=== PATIENT | male | born 1945 | race Caucasian/White ===

== ENCOUNTER 2018-07-10 08:29 | Inpatient (IN) ==
[2018-07-10] MEDS ORDERED: TYLENOL PO ONE (08:53)
--- NOTE | 2018-07-10 09:04 | PROVIDER DOCUMENTATION ---
HPI-Fever - General Chief Complaint: Possible Sepsis-P Stated Complaint: ABD PAIN Time Seen by Provider: 07/10/18 08:47 Source: patient, family Allergies/Adverse Reactions: Patient Allergies Allergy/AdvReac Type Severity Reaction Status Date / Time No Known Allergies Allergy Verified 07/10/18 09:17 - History of Present Illness-Fever Nature of Presenting Problem: 73yom present to ER with c/o fever, low back pain, blood in urine onset this morning. Pt states "I think I passed a kidney stone." Reports hx of this. 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 Pt denies any other symptoms. Fever Severity/Quality: reports: greater than 102 F Onset/Duration: reports: this morning Timing: reports: still present Recent Illness?: reports: none Fever Therapy INSPECTOR SOLDERING: Initiated none Cognitive Baseline: alert, oriented x3 Associated Symptoms: reports: back/neck pain (low back), fever/chills, genitourinary problems (hematuria), muscle aches. denies: chest pain, cough, diarrhea, EENT symptoms, sinus congestion/drainage, nausea, shortness of breath , vomiting - Glascow Coma Score Best Eye Response (Piper): (4) open spontaneously Best Verbal Response (Piper): (5) oriented Best Motor Response (Piper): (6) obeys commands Review of Systems - Adult - REVIEW OF SYSTEMS - ADULT Constitutional: reports: see HPI, chills, fever Eyes: reports: no symptoms reported Ears, Nose, Mouth & Throat: reports: no symptoms reported. denies: ear pain, throat pain Cardiovascular: reports: no symptoms reported. denies: chest pain, orthopnea, palpitations Respiratory: reports: no symptoms reported. denies: cough, dyspnea on exertion , excessive sputum production, shortness of breath, wheezing Gastrointestinal: reports: no symptoms reported. denies: abdominal pain, diarrhea, nausea, vomiting Genitourinary: reports: see HPI, hematuria. denies: dysuria, frequency, flank pain Musculoskeletal: reports: back pain (low) Integumentary: reports: no symptoms reported Neurological: reports: no symptoms reported. denies: dizziness/vertigo, headache/migraines Psychiatric: reports: no symptoms reported Endocrine: reports: no symptoms reported Hematologic/Lymphatic: reports: no symptoms reported Allergic/Immunologic: reports: no symptoms reported All Other Systems: Reviewed and Negative Past History - Adult - PAST MEDICAL HISTORY-ADULT Review of Records: reports: Old Records Reviewed, Nursing Assessment Review, Medications Reviewed Physical Exam-General - PHYSICAL EXAM-ADULT Initial Vital Signs Reviewed: Yes - CONSTITUTIONAL General Appearance: alert, no apparent distress. negative: lethargic - EYES Eyes: PERRL/EOMI, pink conjunctivae - HEAD, EARS, NOSE, MOUTH & THROAT HENMT: normocephalic/atraumatic, moist mucous membranes, normal ENT inspection - NECK Neck: non-tender, full range of motion, supple, normal inspection - RESPIRATORY Respiratory: chest non-tender, lungs clear, normal breath sounds, no pleuratic chest pain, no respiratory distress, no accessory muscle use - CARDIOVASCULAR Cardiovascular: regular rate, rhythm - GASTROINTESTINAL (ABDOMEN) Abdominal Exam: normal bowel sounds, non tender, soft. negative: distended, guarding, rigid, rebound - LYMPHATIC Lymphatic: no adenopathy - MUSCULOSKELETAL Back Exam: normal inspection, no CVA tenderness, no vertebral tenderness Extremity: normal range of motion, normal inspection - SKIN Integumentary: normal color, warm/dry. negative: rash - NEUROLOGIC Neurologic: grossly normal, no motor/sensory deficits - PSYCHIATRIC Psych/Mental Status: oriented x 3 Progress - PLAN OF CARE/RESULTS Progress/Plan/Lab Results: Vital Signs - 8 hr 07/10/18 08:33 07/10/18 09:00 07/10/18 09:52 Temperature 103.1 F H 102.9 F H Pulse Rate 105 H 95 H Respiratory Rate 21 14 Blood Pressure 133/72 120/73 O2 Sat by Pulse Oximetry 97 Laboratory Results - last 24 hr 07/10/18 07/10/18 07/10/18 08:37 08:48 08:48 WBC 4.39 L RBC 4.49 L Hgb 13.3 L Hct 40.3 L MCV 89.8 MCH 29.6 MCHC 33.0 RDW Std Deviation 13.0 Plt Count 231 MPV 8.7 Immature Gran % (Auto) 0.5 Neut % (Auto) 92.5 H Lymph % (Auto) 5.2 L [place] % (Auto) 0.5 L Eos % (Auto) 1.1 Baso % (Auto) 0.2 Immature Gran # (Auto) 0.02 Neut # (Auto) 4.06 Lymph # (Auto) 0.23 L [place] # (Auto) 0.02 L Eos # (Auto) 0.05 Baso # (Auto) 0.01 Segmented Neutrophils 85 H Lymphocytes 10 L Monocytes 4 Eosinophils 1 PT INR PTT (Actin FS) Sodium Potassium Chloride Carbon Dioxide Anion Gap BUN Creatinine Estimated GFR/1.73 m2 BUN/Creatinine Ratio Glucose Calculated Osmolality Calcium Total Bilirubin AST ALT Alkaline Phosphatase Creatine Kinase Troponin T Total Protein Albumin Globulin Albumin/Globulin Ratio Plasma Lactate 2.8 H Urine Source Urine Color Urine Clarity Urine pH Ur Specific [place] Urine Protein Urine Ketones Urine Blood Urine Nitrite Urine Bilirubin Urine Urobilinogen Urine Microscopic RBC Urine WBC Urine Microscopic WBC Ur Epithelial Cells Urine Bacteria Urine Glucose Influenza A (Rapid) NEGATIVE Influenza B (Rapid) NEGATIVE 07/10/18 07/10/18 07/10/18 08:48 08:48 08:48 WBC RBC Hgb Hct MCV MCH MCHC RDW Std Deviation Plt Count MPV Immature Gran % (Auto) Neut % (Auto) Lymph % (Auto) [place] % (Auto) Eos % (Auto) Baso % (Auto) Immature Gran # (Auto) Neut # (Auto) Lymph # (Auto) [place] # (Auto) Eos # (Auto) Baso # (Auto) Segmented Neutrophils Lymphocytes Monocytes Eosinophils PT 13.9 INR 1.02 PTT (Actin FS) 30.0 Sodium 139 Potassium 4.7 Chloride 98 Carbon Dioxide 28 Anion Gap 13 BUN 7 L Creatinine 0.8 Estimated GFR/1.73 m2 > 60 BUN/Creatinine Ratio 9 Glucose 102 Calculated Osmolality 276 Calcium 9.0 Total Bilirubin 0.60 AST 22 ALT 10 Alkaline Phosphatase 61 Creatine Kinase 81 Troponin T < 0.010 Total Protein 7.2 Albumin 4.1 Globulin 3.0 Albumin/Globulin Ratio 1.0 Plasma Lactate Urine Source Urine Color Urine Clarity Urine pH Ur Specific [place] Urine Protein Urine Ketones Urine Blood Urine Nitrite Urine Bilirubin Urine Urobilinogen Urine Microscopic RBC Urine WBC Urine Microscopic WBC Ur Epithelial Cells Urine Bacteria Urine Glucose Influenza A (Rapid) Influenza B (Rapid) 07/10/18 09:48 WBC RBC Hgb Hct MCV MCH MCHC RDW Std Deviation Plt Count MPV Immature Gran % (Auto) Neut % (Auto) Lymph % (Auto) [place] % (Auto) Eos % (Auto) Baso % (Auto) Immature Gran # (Auto) Neut # (Auto) Lymph # (Auto) [place] # (Auto) Eos # (Auto) Baso # (Auto) Segmented Neutrophils Lymphocytes Monocytes Eosinophils PT INR PTT (Actin FS) Sodium Potassium Chloride Carbon Dioxide Anion Gap BUN Creatinine Estimated GFR/1.73 m2 BUN/Creatinine Ratio Glucose Calculated Osmolality Calcium Total Bilirubin AST ALT Alkaline Phosphatase Creatine Kinase Troponin T Total Protein Albumin Globulin Albumin/Globulin Ratio Plasma Lactate Urine Source CLEAN CATCH Urine Color YELLOW Urine Clarity SL. CLOUDY A Urine pH 7.0 Ur Specific [place] 1.005 Urine Protein 1+(30 mg/dL) A Urine Ketones NEGATIVE Urine Blood 3+ A Urine Nitrite NEGATIVE Urine Bilirubin NEGATIVE Urine Urobilinogen NORMAL Urine Microscopic RBC 10-20 A Urine WBC TRACE A Urine Microscopic WBC 10-20 A Ur Epithelial Cells >10 A Urine Bacteria 4+ Urine Glucose NEGATIVE Influenza A (Rapid) Influenza B (Rapid) Orders Category Date Time Status Cardiac Monitoring DIRECTED Care 07/10/18 08:39 Active IV Insertion ORDERED Care 07/10/18 08:39 Completed Notify MD of + Sepsis Screen NOW Care 07/10/18 08:39 Active Notify Physician As Ordered Care 07/10/18 08:39 Active Repeat Vital Signs .Temp Care 07/10/18 09:35 Active CHEST-PORTABLE [RAD] Stat Exams 07/10/18 08:[address] ABD/PELVIS W/IV CONT ONLY [CT] Stat Exams 07/10/18 08:53 Completed BLOOD CULTURE [BLDCUL] Stat Lab 07/10/18 08:51 Ordered CBC WITH DIFF [HEME] Stat Lab 07/10/18 08:48 Completed CK PROFILE [SP CHEM] Stat Lab 07/10/18 08:48 Completed COMPREHENSIVE METABOLIC PANEL [CHEM] Stat Lab 07/10/18 08:48 Completed Flu [INFLUENZA SCREEN PL] Stat Lab 07/10/18 08:37 Completed LACTATE, PLASMA [CHEM] Lab 07/10/18 11:45 Uncollected LACTATE, PLASMA [CHEM] Lab 07/10/18 14:45 Uncollected LACTATE, PLASMA [CHEM] Stat Lab 07/10/18 08:48 Completed PROTIME WITH INR [COAG] Stat Lab 07/10/18 08:48 Completed PTT [COAG] Stat Lab 07/10/18 08:48 Completed TROPONIN T Stat Lab 07/10/18 08:[address] W/POSS RFLX CULT [URINALYSIS] Stat Lab 07/10/18 09:48 Completed URINE CULTURE [RM] Routine Lab 07/10/18 10:12 Ordered 0.9% Sodium Chloride Inj [Ns] 1,000 ml Med 07/10/18 09:34 Discontinued IV 999 mls/hr 0.9% Sodium Chloride Inj [Ns] 1,000 ml Med 07/10/18 09:52 Discontinued IV 999 mls/hr Acetaminophen [Tylenol] Med 07/10/18 08:53 Discontinued 1,000 mg PO NOW ONE CefTRIAXONE [Rocephin] 1 gm Med 07/10/18 09:52 Discontinued 0.9% Sodium Chloride Inj [Ns] 50 ml IV NOW Oxygen Device Stat Oth 07/10/18 08:39 Active EKG [EKG] Stat Ther 07/10/18 08:54 Draft Result Diagrams: 07/10/18 08:48 07/10/18 08:48 - REASSESSMENT Reassessment #1 Time Reassessed: 10:53 (Discussed results with pt and family. Discussed need for possible admission. Pt agrees. BP 95/79, HR 93 while in room. Pt A&Ox3. Will page hospitalist for admission) - EKG 1 Time of EKG reading by physician:: 09:00 EKG Read and Signed by:: Rigoberto Rosado Rate: 96 Rhythm: NSR - XRAY 1 XRAY Study: Chest Impression: See EMR Report (The lungs are well expanded. The heart is not enlarged. The vessels are not distended. There are no infiltrates. No effusion identified. IMPRESSION: No pneumonia. Electronically signed by Irving Pal 07/10/2018 9:05 AM) - CT/MRI 1 CT Study: Abdomen, Pelvis Impression: See EMR Report (No calcified gallstones or adjacent inflammation. Normal liver, spleen, pancreas, adrenal glands, and kidneys. There are several tiny renal cysts. No solid renal masses or stones identified. No hydronephrosis. Mild to moderate atherosclerosis. No aortic aneurysm. No bowel obstruction. There is stool throughout the colon. There are scattered colonic diverticula. No inflammation about the cecum. The prostate is enlarged measuring at least 5.6 cm in transverse diameter. Normal urinary bladder. There is scoliosis with degenerative spine changes. IMPRESSION: 1.Constipation 2.Diverticulosis 3.Enlarged prostate 4.Tiny renal cysts This exam was performed using automated exposure control, adjustment of mA or kV according to patient size, and/or use of iterative reconstruction technique. Electronically signed by Irving Pal 07/10/2018 10:43 AM) - CONSULTS/PCP/HOSPITALIST Notification #1 *Consult/PCP/Hospitalist*: hospitalist Dr Winslow Time Discussed: 11:34 (possible admission) Reason/Comments: urosepsis Consult Disposition: Admit Departure - Departure Date of Disposition Decision: 07/10/18 Time of Disposition Decision: 11:34 DIAGNOSIS: UTI (urinary tract infection) Qualifiers: Urinary tract infection type: site unspecified Hematuria presence: with hematuria Qualified Code(s): N39.0 - Urinary tract infection, site not specified ; R31.9 - Hematuria, unspecified Sepsis Qualifiers: Sepsis type: sepsis due to unspecified organism Qualified Code(s): A41.9 - Sepsis, unspecified organism Disposition: ADMITTED INPATIENT 09 Certified Medical Emergency: Emergent Condition: Fair Referrals and Follow-Ups: None,PCP [Primary Care Provider] - - Critical Care Note This patient required my direct & personal management of CC.: No Attestation - Physician/ ADAIR Attestation Patient care was provided by Advanced Practice Provider:: Yes Advanced Practice Provider:: Corbin Peña Advanced Practice Provider documentation review:: The Mid-level provider documentation, treatment plan and medical decision making was reviewed by the physician who agrees with all treatment and medical decision making by the P. The physician spent face to face time with patient:: No Advanced Practice Provider documentation review:: Supervising physician onsite and consulted in the evaluation and care of this patient. The physician did not have a face to face encounter with the patient.
--- NOTE | 2018-07-10 09:07 | Diag Imaging Result Doc PS360 ---
EXAM: CHEST-PORTABLE HISTORY: COUGH TECHNIQUE: Chest single view COMPARISON: None. FINDINGS: The lungs are well expanded. The heart is not enlarged. The vessels are not distended. There are no infiltrates. No effusion identified. IMPRESSION: No pneumonia. Electronically signed by Irving Pal 07/10/2018 9:05 AM
[2018-07-10] MEDS ORDERED: NS 1,000 ML IV ONE ×2 (09:34→09:52)
--- NOTE | 2018-07-10 09:41 | EKG Report ---
Test Performed on : 07/10/2018 09:00:56 AM Test Reason : CP Blood Pressure : / mmHG Vent. Rate : 096 BPM Atrial Rate : 096 BPM P-R Int : 174 ms QRS Dur : 090 ms QT Int : 336 ms P-R-T Axes : 044 -22 036 degrees QTc Int : 424 ms Normal sinus rhythm. Normal ECG No previous ECGs available Unconfirmed Result
[2018-07-10 09:44] LABS: INR 1.02; PROTIME 13.9 Seconds (11.0-16.0)
[2018-07-10 09:48] LABS: AGAP 13; ALBUMIN 4.1 g/dL (3.5-5.0); ALKALINE PHOSPHATASE 61 U/L (32-122); BUN 7 mg/dL (8-22); CHLORIDE 98 mmol/L (98-107); CK PROFILE 81 U/L (24-204); COSMO 276; CREATININE 0.8 mg/dL (0.7-1.2); ESTIMATED GFR > 60; GLUCOSE 102 mg/dL (70-104); GOT 22 U/L (10-34); GPT 10 U/L (10-44); POTASSIUM 4.7 mmol/L (3.5-5.1); SODIUM 139 mmol/L (136-145); TCO2 28 mmol/L (25-35); TOTAL PROTEIN 7.2 g/dL (6.3-8.3)
[2018-07-10 09:51] LABS: BASO# 0.01 X1000 (0.0-0.2); BASO% 0.2 % (0.0-0.8); EOS# 0.05 X1000 (0.0-0.7); EOS% 1.1 % (0.0-10.0); HEMATOCRIT 40.3 % (42.0-52.0); HEMOGLOBIN 13.3 g/dL (14.0-18.0); IMM GRAN# 0.02 X1000 (0.0-0.04); IMM GRAN% 0.5 % (0.0-0.5); LYMPH# 0.23 X1000 (1.2-3.4); LYMPH% 5.2 % (20.5-51.1); MCH 29.6 PG (27-31); MCV 89.8 FL (81-99); MONO# 0.02 X1000 (0.11-0.59); MONO% 0.5 % (1.7-9.3); MPV 8.7 FL (7.4-10.4); NEUT# 4.06 X1000 (1.4-6.5); NEUT% 92.5 % (42.2-75.2); PLT 231 X1000 (130-400); RBC 4.49 XMIL (4.7-6.1); WBC 4.39 X1000 (4.8-10.8)
[2018-07-10] MEDS ORDERED: ROCEPHIN 1 GM in NS 50 ML IV ONE (09:52)
[2018-07-10 09:56] LABS: INFLUENZA A NEGATIVE (NEGATIVE); INFLUENZA B NEGATIVE (NEGATIVE)
[2018-07-10 10:05] LABS: BILIRUBIN URINE NEGATIVE (NEGATIVE); BLOOD URINE 3+ (NEGATIVE); CLARITY SL. CLOUDY (CLEAR); COLOR YELLOW; GLUCOSE URINE NEGATIVE (NEGATIVE); KETONE URINE NEGATIVE (NEGATIVE); LEUKOCYTES URINE TRACE (NEGATIVE); NITRITE URINE NEGATIVE (NEGATIVE); PROTEIN URINE 1+(30 mg/dL) mg/dL (NEGATIVE); SP GRAVITY URINE 1.005; UROBILINOGEN URINE NORMAL
[2018-07-10 10:12] LABS: URINE BACTERIA 4+ /HFP; URINE EPITHELIAL CELLS >10 /HPF (<10); URINE SOURCE CLEAN CATCH
--- NOTE | 2018-07-10 10:46 | Diag Imaging Result Doc PS360 ---
EXAM: CT ABD/PELVIS W/IV CONT ONLY HISTORY: abd pain, hematuria TECHNIQUE: CT abdomen and pelvis with intravenous contrast COMPARISON: None. FINDINGS: No calcified gallstones or adjacent inflammation. Normal liver, spleen, pancreas, adrenal glands, and kidneys. There are several tiny renal cysts. No solid renal masses or stones identified. No hydronephrosis. Mild to moderate atherosclerosis. No aortic aneurysm. No bowel obstruction. There is stool throughout the colon. There are scattered colonic diverticula. No inflammation about the cecum. The prostate is enlarged measuring at least 5.6 cm in transverse diameter. Normal urinary bladder. There is scoliosis with degenerative spine changes. IMPRESSION: 1.Constipation 2.Diverticulosis 3.Enlarged prostate 4.Tiny renal cysts This exam was performed using automated exposure control, adjustment of mA or kV according to patient size, and/or use of iterative reconstruction technique. Electronically signed by Irving Pal 07/10/2018 10:43 AM
[2018-07-10 11:24] LABS: EOS 1 % (1-10); LYMPHS 10 % (21-51); MONO 4 % (1-9); SEGS 85 % (42-75)
[2018-07-10] MEDS ORDERED: ZOFRAN IV PRN (13:56)
[2018-07-10] MEDS ORDERED: TYLENOL PO PRN (13:56)
[2018-07-10] MEDS: ZOSYN 3.375 GM in NS 50 ML IV SCH ×2 (14:43→21:40)
[2018-07-10] MEDS ORDERED: NORCO-5 PO ONE (16:35)
[2018-07-10] MEDS ORDERED: NORCO-5 PO PRN (18:58)
--- NOTE | 2018-07-10 22:22 | HISTORY AND PHYSICAL ---
CHIEF COMPLAINT: Abdominal pain. HISTORY OF PRESENT ILLNESS: Patient is 73-year-old male who does not live in the area. He is here visiting his son. States he has had multiple previous urinary infections in fact he has a planned urologic procedure once he gets home. States that he has had a temperature of 102 degrees, his low back pain, fevers, chills, hematuria, muscle aches, dysuria. ALLERGIES: No known drug allergies. MEDICATIONS: Do not have an active medication list. REVIEW OF SYSTEMS: As noted above. Patient notes he has had some blood in his urine, thought initially he had a kidney stone. Denies any flank pain, diarrhea, denies any current nausea, vomiting, dysuria, frequency, urgency, denies dyspnea on exertion, chest pain, cough, congestion or shortness of breath. Denies focalized numbness, tingling, weakness in extremities PAST MEDICAL HISTORY: Significant for kidney stones, recurrent urinary infections. FAMILY HISTORY: Noncontributory. SOCIAL HISTORY: Patient does not smoke or drink, he [place] a different state. He is here visiting his son. PHYSICAL: Temperature 103.1, pulse 105, respiratory 21, BP 133/72.General: Patient is awake, alert, currently in no respiratory distress he is quite pleasant to talk with. HEENT: Normocephalic. Neck: Supple. CV: Regular rate, no murmurs. Chest: Clear, nonlabored. Abdomen: Soft, nondistended, no flank pain, no masses. Extremities: Moves all extremities. Neuro: No focal neurological changes. Skin: Warm, dry, no rashes. ASSESSMENT: 1. Urinary tract infection . 2. Febrile illness. 3. Sepsis secondary to urinary tract infection as noted by tachycardia, hypotension. 4. Constipation which is likely contributing to urinary infection. 5. Diverticulosis. PLAN: Will continue patient in the hospital, placed on antibiotics, recheck his labs in the morning and follow his clinical course. Further orders as needed. cc: Zeeshan Younger MD
[2018-07-10] MEDS: NS 1,000 ML IV SCH (23:41)
[2018-07-11] MEDS ORDERED: NS 1,000 ML IV ONE (00:07)
[2018-07-11] MEDS: ZOSYN 3.375 GM in NS 50 ML IV SCH ×4 (02:12→20:02)
[2018-07-11 06:39] LABS: HEMATOCRIT 34.1 % (42.0-52.0); HEMOGLOBIN 11.2 g/dL (14.0-18.0); MCH 29.6 PG (27-31); MCHC 32.8 g/dL (33-37); MCV 90.2 FL (81-99); MPV 9.2 FL (7.4-10.4); RBC 3.78 XMIL (4.7-6.1); RDW 13.4 % (11.5-14.5); WBC 20.83 X1000 (4.8-10.8)
[2018-07-11 07:01] LABS: AGAP 10; ALBUMIN 2.7 g/dL (3.5-5.0); ALKALINE PHOSPHATASE 49 U/L (32-122); BUN 13 mg/dL (8-22); CALCIUM 7.6 mg/dL (8.8-10.2); CHLORIDE 104 mmol/L (98-107); COSMO 276; ESTIMATED GFR > 60; GLUCOSE 94 mg/dL (70-104); GOT 39 U/L (10-34); GPT 21 U/L (10-44); MAGNESIUM 1.5 mg/dL (1.5-2.7); SODIUM 138 mmol/L (136-145); TCO2 25 mmol/L (25-35); TOTAL PROTEIN 5.5 g/dL (6.3-8.3)
[2018-07-11] MEDS: SYNTHROID PO SCH ×2 (07:20)
[2018-07-11] MEDS: NS 1,000 ML IV SCH ×3 (07:20→23:34)
[2018-07-11] MEDS: PRILOSEC PO SCH ×2 (07:20→20:03)
[2018-07-11] MEDS: PROSCAR PO SCH (08:04)
[2018-07-11] MEDS ORDERED: FLOMAX PO SCH (18:00)
--- NOTE | 2018-07-11 23:39 | PROGRESS NOTE ---
DATE: 07/11/2018 SUBJECTIVE: Patient notes he is feeling a lot better. Denies any fevers. Currently denies any chills. States his urine output is improved. OBJECTIVE/PHYSICAL EXAMINATION: Vital Signs: T-max 101.4 degrees, temperature current 98.2, pulse 69, respiratory 18, BP 96/64. General: Patient is a very pleasant to talk with individual who is in no current respiratory distress. He is sitting on side of bed talking to his daughter- in-law. HEENT: Normocephalic. Neck: Supple. CARDIOVASCULAR: Regular rate. No murmurs. Chest: Clear, nonlabored. Abdomen: Soft, nondistended. No flank pain. Extremities: Moves all extremities. No edema. ASSESSMENT: 1. Leukocytosis. White count has gone from 4 to 20, although he has been afebrile for the past 18 hours. I expect this is more due to fluid mobilization than actual worsening of his condition. 2. Urinary tract infection. Currently growing gram-negative rods. 3. Febrile illness. 4. Sepsis secondary to urinary tract infection, appears resolved. 5. Constipation. PLAN: We will continue patient in the hospital. Follow his urine culture. He is currently on Zosyn. He certainly appears to be improving. Further orders as needed. cc: Zeeshan Younger MD
[2018-07-12] MEDS: ZOSYN 3.375 GM in NS 50 ML IV SCH ×2 (02:58→08:46)
[2018-07-12] MEDS ORDERED: SYNTHROID PO SCH (06:00)
[2018-07-12] MEDS: SYNTHROID PO SCH ×2 (06:10→06:11)
[2018-07-12] MEDS: NS 1,000 ML IV SCH (06:10)
[2018-07-12] MEDS: PRILOSEC PO SCH (06:11)
[2018-07-12 07:36] LABS: AGAP 8; BUN 13 mg/dL (8-22); CHLORIDE 105 mmol/L (98-107); COSMO 274; CREATININE 0.9 mg/dL (0.7-1.2); ESTIMATED GFR > 60; GLUCOSE 95 mg/dL (70-104); POTASSIUM 3.9 mmol/L (3.5-5.1); SODIUM 137 mmol/L (136-145); TCO2 24 mmol/L (25-35)
[2018-07-12 07:39] LABS: HEMOGLOBIN 11.4 g/dL (14.0-18.0); MCH 29.2 PG (27-31); MCHC 32.6 g/dL (33-37); MCV 89.5 FL (81-99); MPV 9.5 FL (7.4-10.4); RBC 3.91 XMIL (4.7-6.1); RDW 13.5 % (11.5-14.5); WBC 9.24 X1000 (4.8-10.8)
[2018-07-12] MEDS: PROSCAR PO SCH (08:46)
[2018-07-12 12:09] VITALS: BP 137/81
--- NOTE | 2018-07-12 15:16 | DISCHARGE SUMMARY ---
ADMISSION DATE: 07/10/2018 DISCHARGE DATE: 07/12/2018 CONSULTATIONS: None. PERTINENT PROCEDURES: Abdomen and pelvis CT: Constipation, diverticulitis, enlarged prostate, tiny renal cysts. EKG: Normal sinus rhythm. DISCHARGE DIAGNOSES: 1. Urinary tract infection secondary to Escherichia coli, resistant to levofloxacin. He has been on intravenous Zosyn. We will switch him to oral Keflex, and discharge him back home. 2. Sepsis secondary to Escherichia coli urinary tract infection. He has been on intravenous Zosyn. His sepsis has resolved. His white count has went from 20 to 9. He has been afebrile since initial admission. 3. Constipation. The patient has had 3 soft formed bowel movements since admission. Improved. 4. Diverticulosis. 5. History of recurrent urinary tract infections. HOSPITAL COURSE: Briefly, Mr. Reeves is a 73-year-old gentleman who is from [place]. He is not currently from this area. He was here visiting his son. He reports multiple previous urinary tract infections. He has a planned urologic procedure once he gets home. He reported a temperature of 102 degrees, low back pain, fevers, chills, hematuria, muscle aches, and dysuria. In the ED, he was found to be in sepsis with a urinary tract infection, with tachycardia and hypotension, as well as an elevated plasma lactate. He was admitted and started on broad-spectrum antibiotics, IV resuscitation. His urine culture did grow out Escherichia coli that was resistant to levofloxacin. He has been febrile-free since admission. He has had a stable hospital course, and he will be discharged back home with family on p.o. Keflex. Once he returns to [place], he will need to follow up with his primary care physician. DISCHARGE VITAL SIGNS: Temperature is 97.9 degrees, heart rate 62, respirations 20, blood pressure 137/81, O2 is 98% on room air. White count at the time of discharge was 9.24, hemoglobin and hematocrit of 11 and 35. DISCHARGE DIET: Regular. DISCHARGE MEDICATIONS: 1. Finasteride 5 mg p.o. daily. 2. Levothyroxine 137 mcg p.o. daily. 3. Prilosec 20 mg p.o. b.i.d. 4. Flomax 0.4 mg p.o. daily. 5. Keflex 500 mg p.o. b.i.d. for 5 more days. FOLLOWUP: Mr. Reeves is being discharged back home with family. He is to take all medications and antibiotics as prescribed. When he returns back home to [place], he should follow up with his primary care provider as well as his urologist. He can return to the ED or call 911 for any worsening of symptoms. Dictated by BART Rodriguez for Zeeshan Younger MD cc: Zeeshan Younger MD
--- NOTE | 2018-07-13 02:39 | DISCHARGE SUMMARY ---
ADMISSION DATE: 07/10/2018 DISCHARGE DATE: 07/12/2018 ADDENDUM: Patient seen and examined by myself. Full note dictated and discussed with nurse practitioner. On discharge, patient is awake, alert. He initially had a fever of 101.4. Currently, he has been afebrile for the past 36 hours. He is ambulating without any difficulty. His leukocytosis is resolved. Overall, he is feeling better and he will be discharged home on antibiotics. He will follow up outpatient with primary urology specialist. cc: Zeeshan Younger MD
== END 2018-07-12 14:45 | disposition home or self-care (01) | DRG 872 ==
LOC: P.ED 08:29 → P.MEDSURG 14:53
PROVIDERS: ATTEND Family Medicine
CPT/HCPCS: 36415; 71010; 71045; 74177; 80048; 80053; 81001; 82550; 83605; 83735; 84484; 85025; 85027; 85610; 85730; 87040; 87077; 87088; 87186; 87275; 87276; 87804; 93005; 94761; 96361; 96365; 96375; 99285; A9270; J0696; J2543; J7030; Q9967; S0138